=== PATIENT | female | born 1960 | race African-American/Black ===

== ENCOUNTER 2018-01-21 22:51 | Emergency (ER) | payer MEDICAID ==
[~2018-01-21] VITALS: Ht 162.6 cm; Wt 69.0 kg
[2018-01-21 23:10] VITALS: BP 137/89
== END 2018-01-22 00:44 | disposition left against medical advice (07) ==
LOC: ER 23:07
DX: Z53.21 Procedure and treatment not carried out due to patient leaving prior to being seen by health care provider (principal); F17.200 Nicotine dependence, unspecified, uncomplicated